=== PATIENT | female | born 1970 | race African-American/Black ===

== ENCOUNTER 2017-03-07 16:55 | Emergency (ER) | payer OTHER ==
[~2017-03-07] VITALS: Ht 162.5 cm; Wt 130.2 kg
== END 2017-03-07 19:56 | disposition home or self-care (01) ==
LOC: ED 16:55
DX: S89.92XA Unspecified injury of left lower leg, initial encounter (principal); F17.200 Nicotine dependence, unspecified, uncomplicated; Z88.0 Allergy status to penicillin; Z88.6 Allergy status to analgesic agent; W00.0XXA Fall on same level due to ice and snow, initial encounter; Y93.89 Activity, other specified; Y92.89 Other specified places as the place of occurrence of the external cause; Y99.8 Other external cause status